=== PATIENT | female | born 1955 | race Caucasian/White ===

== ENCOUNTER → 2018-03-02 | Outpatient (CLI) | payer BC ==
[~2018-03-02] MED LIST: METHACHOLINE KIT (J7674) INH
== END ==
LOC: M CARPUL 06:42
DX: R05 Cough (principal)
CPT/HCPCS: J7674

== ENCOUNTER → 2018-03-21 | Outpatient (CLI) | payer BC | LOC: M WHC 06:48 | DX: Z12.31 Encounter for screening mammogram for malignant neoplasm of breast (principal); N60.31 Fibrosclerosis of right breast; N60.32 Fibrosclerosis of left breast | CPT/HCPCS: 77067 ==

== ENCOUNTER → 2018-08-07 | Outpatient (REF) | payer BC ==
[~2018-08-07] MED LIST changes: +ASPI81TA63; +CALC12502; +COLA100C2; +FLEXERIL; +FOLI1TAB; +IMURAN; +LISI10TA4; -METHACHOLINE KIT (J7674) INH; +OMEGA 3 FATTY ACIDS; +PERC5TAB8; +PRED10TA2; +SYNT75TA; +THERGRAN; +VICOTAB; +VIT D; +ZOCO40TA; +[UNRECOGNIZED DRUG - OTHER]
[2018-08-07 12:13] LABS: ALBUMIN 3.8 GM/DL (3.2-5.2); ALT/SGPT 29 U/L (12-78); BILIRUBIN,TOTAL 0.5 MG/DL (0.2-1.0); BLOOD UREA NITROGEN 15 MG/DL (7-18); CALCIUM LEVEL 9.6 MG/DL (8.8-10.2); CARBON DIOXIDE LEVEL 29 MEQ/L (21-32); CHLORIDE LEVEL 106 MEQ/L (98-107); CHOLESTEROL LEVEL 185 MG/DL (<200); CREATININE FOR GFR 0.88 MG/DL (0.55-1.30); GLOMERULAR FILTRATION RATE > 60.0 (>45); GLUCOSE, FASTING 85 MG/DL (70-100); HDL CHOLESTEROL 53 MG/DL (>40); LDL CHOLESTEROL 84 MG/DL (<100); NON-HDL-C 132 MG/DL; POTASSIUM SERUM 4.5 MEQ/L (3.5-5.1); SODIUM LEVEL 141 MEQ/L (136-145); THYROID STIMULATING HORMONE 0.516 uIU/ML (0.358-3.740); TOTAL PROTEIN 7.2 GM/DL (6.4-8.2); TRIGLYCERIDES LEVEL 239 MG/DL (<150)
== END ==
LOC: M SFHCPLAZ 08:46
PROVIDERS: ATTEND Nurse Practitioner Adult Health
DX: E78.2 Mixed hyperlipidemia (principal); E03.9 Hypothyroidism, unspecified

== ENCOUNTER → 2019-02-01 | Outpatient (CLI) | payer BC ==
--- NOTE | 2019-02-01 19:44 | REP ---
Lumbar spine series: Six views: History: Low back pain. Comparison study: January 04, 2014. Findings: There is anterior wedge compression fracture deformity at the superior endplate of L4. There is approximate 25% loss of anterior vertebral body heights. This is a new finding compared with the January 04, 2014 prior radiographs. This could be a recent compression fracture deformity. No bony destructive lesion is seen. Lumbar vertebral body heights are otherwise preserved. There is mild disc space narrowing L4-5 and L5-S1. Vacuum phenomenon is present at L5-S1. Vascular calcifications seen in normal caliber aorta. Pedicles and posterior elements appear intact. Sacrum and SI joints are intact. Tubal ligation clamps are noted in the pelvis bilaterally. Impression: Interval partial wedge compression fracture deformity has developed at L4 with 25% loss of vertebral body heights. Age indeterminate. New from 2013. Electronically Signed by Ant Mays MD 02/02/2019 07:45 A
== END ==
LOC: M LRY 16:22
PROVIDERS: ATTEND Nurse Practitioner Adult Health
DX: S32.040A Wedge compression fracture of fourth lumbar vertebra, initial encounter for closed fracture (principal); X58.XXXA Exposure to other specified factors, initial encounter; Y92.89 Other specified places as the place of occurrence of the external cause

== ENCOUNTER → 2019-05-04 | Outpatient (REF) | payer BC ==
[2019-05-08 14:20] LABS: HPV HYBRID CAPTURE II Negative (Negative)
== END ==
LOC: M SFHCWAGY 13:54
PROVIDERS: ATTEND Nurse Practitioner Women's Health
DX: Z12.4 Encounter for screening for malignant neoplasm of cervix (principal)
CPT/HCPCS: 87624; G0123

== ENCOUNTER → 2019-05-04 | Outpatient (CLI) | payer BC ==
--- NOTE | 2019-05-04 17:42 | REPMRS ---
Patient History The patient states she had a clinical breast exam in 04/2019. Family history of colorectal cancer at age 85 in father. Took hormonal contraceptives for 10 years. Digital Woman Screen Mammo: May 04, 2019 - Exam #: [id number] Bilateral CC and MLO view(s) were taken. Technologist: Susy Limon Technologist Prior study comparison: March 21, 2018, bilateral digital woman screen mammo performed at [facility]. July 16, 2016, digital woman screen mammo performed at [facility]. May 26, 2015, digital woman screen mammo performed at [facility]. FINDINGS: The breast tissue is heterogeneously dense. This may lower the sensitivity of mammography. There is a moderate amount of heterogeneously dense fibroglandular tissue which is fairly symmetric. There is no interval development of dominant mass, architectural distortion, or grouped microcalcification typical of malignancy. There has been no change in the appearance of the mammogram from the prior studies. 3-D tomosynthesis shows no additional findings. Assessment: BI-RADS/ACR category 1 mammogram. Negative Mammogram. Recommendation Routine screening mammogram of both breasts in 1 year (for women over age 40). This patient's Lifetime Breast Cancer RIsk is estimated at 5.7 %. This mammogram was interpreted with the aid of an FDA-approved computer-aided dectection system. Electronically Signed By: Toni Mays MD 05/04/19 [id number]
== END ==
LOC: M WHC 13:48
PROVIDERS: ATTEND Nurse Practitioner Women's Health
DX: Z12.31 Encounter for screening mammogram for malignant neoplasm of breast (principal); Z80.0 Family history of malignant neoplasm of digestive organs

== ENCOUNTER → 2020-09-08 | Outpatient (CLI) | payer BC ==
--- NOTE | 2020-09-08 11:31 | REPMRS ---
Patient History The patient states she has not had a clinical breast exam in over a year. Family history of colorectal cancer at age 85 in father. Took hormonal contraceptives for 10 years. Digital Woman Screen Mammo: September 08, 2020 - Exam #: [id number] Bilateral CC and MLO view(s) were taken. Technologist: Daly Reagan, Technologist Prior study comparison: May 04, 2019, bilateral digital woman screen mammo performed at [facility]. March 21, 2018, bilateral digital woman screen mammo performed at [facility]. July 16, 2016, digital woman screen mammo performed at [facility]. FINDINGS: There are scattered fibroglandular densities. The Volpara volumetric breast density category is:B. There has been no change in the appearance of the mammogram from the prior studies. There is a mild amount of scattered fibroglandular density which is fairly symmetric. There is no interval development of dominant mass, architectural distortion, or grouped microcalcification suggestive of malignancy. 3-D tomosynthesis shows no additional findings. Assessment: BI-RADS/ACR category 1 mammogram. Negative Mammogram. Recommendation Routine screening mammogram of both breasts in 1 year (for women over age 40). This patient's [facility] Lifetime Breast Cancer Risk is estimated at 5.5 %. This mammogram was interpreted with the aid of an FDA-approved computer-aided dectection system. Electronically Signed By: Toni Mays MD 09/08/20 1610
== END ==
LOC: M WHC 09:30
PROVIDERS: ATTEND Nurse Practitioner Adult Health
DX: Z12.31 Encounter for screening mammogram for malignant neoplasm of breast (principal)

== ENCOUNTER → 2021-07-27 | Outpatient (CLI) | payer BC | LOC: M LABSMTC 11:28 | PROVIDERS: ATTEND Pediatrics | DX: Z11.52 Encounter for screening for COVID-19 (principal) | CPT/HCPCS: C9803; U0003 ==

== ENCOUNTER → 2021-11-03 | Outpatient (CLI) | payer BC | LOC: M WHC 11:47 | PROVIDERS: ATTEND Nurse Practitioner Adult Health | DX: Z12.31 Encounter for screening mammogram for malignant neoplasm of breast (principal); R92.2 Inconclusive mammogram ==

== ENCOUNTER → 2021-12-07 | Outpatient (CLI) | payer OTHER ==
[2021-12-07 12:12] LABS: APPEARANCE, URINE HAZY (CLEAR); BACTERIA, URINE AUTO NEGATIVE (NEGATIVE); BILIRUBIN, URINE AUTO NEGATIVE (NEGATIVE); BLOOD, URINE BLOOD NEGATIVE (NEGATIVE); COLOR, URINE YELLOW (YELLOW); EOS # 0.1 10^3/uL (0.0-0.5); EOS % 3.1 % (0.0-3.0); GLUCOSE, URINE (UA) AUTO NEGATIVE (NEGATIVE); HEMATOCRIT 38.6 % (36.0-47.0); HEMOGLOBIN 12.9 g/dl (12.0-15.5); KETONE, URINE AUTO NEGATIVE (NEGATIVE); LEUKOCYTE ESTERASE, URINE AUTO 1+ (NEGATIVE); LYMPH # 0.9 10^3/uL (1.5-5.0); LYMPH % 21.7 % (24.0-44.0); MEAN CORPUSCULAR HEMOGLOBIN 35.4 pg (27.0-33.0); MEAN CORPUSCULAR HGB CONC 33.4 g/dl (32.0-36.5); MONO # 0.5 10^3/uL (0.0-0.8); MONO % 12.8 % (2.0-8.0); MUCUS, URINE SMALL (NEGATIVE); NEUTROPHILS # 2.4 10^3/uL (1.5-8.5); NEUTROPHILS % 61.1 % (36.0-66.0); NITRITE, URINE AUTO NEGATIVE (NEGATIVE); PLATELET COUNT, AUTOMATED 198 10^3/uL (150-450); PROTEIN, URINE AUTO 2+ mg/dL (NEGATIVE); RBC, URINE AUTO 1 /HPF (0-3); RED BLOOD COUNT 3.64 10^6/uL (4.00-5.40); SPECIFIC GRAVITY URINE AUTO 1.006 (1.002-1.035); SQUAMOUS EPITHELIAL CELL UR AU 6 /HPF (0-6); UROBILINOGEN, URINE AUTO 0.2 mg/dL (0.0-2.0); WBC, URINE AUTO 7 /HPF (0-3); WHITE BLOOD COUNT 3.9 10^3/uL (4.0-10.0)
[2021-12-07 12:41] LABS: ALBUMIN 3.8 GM/DL (3.2-5.2); BILIRUBIN,TOTAL 0.8 MG/DL (0.2-1.0); CALCIUM LEVEL 9.4 MG/DL (8.8-10.2); CREATININE FOR GFR 1.03 MG/DL (0.55-1.30); GLOMERULAR FILTRATION RATE 57.4 (>45); POTASSIUM SERUM 4.3 MEQ/L (3.5-5.1); TOTAL PROTEIN 8.6 GM/DL (6.4-8.2)
== END ==
LOC: M WUC 10:55
PROVIDERS: ATTEND Nurse Practitioner Family
DX: M75.51 Bursitis of right shoulder (principal)

== ENCOUNTER → 2022-09-08 | Outpatient (CLI) | payer BC, OTHER ==
[2022-09-08 14:02] LABS: ALBUMIN 3.8 G/DL (3.2-5.2); BILIRUBIN,TOTAL 1.1 MG/DL (0.3-1.2); CALCIUM LEVEL 10.5 MG/DL (8.3-10.6); CHOLESTEROL RISK RATIO 2.95 (<5); CREATININE FOR GFR 1.05 MG/DL (0.55-1.30); HDL CHOLESTEROL 54.1 MG/DL (>40); POTASSIUM SERUM 4.7 MMOL/L (3.5-5.1); THYROID STIMULATING HORMONE 0.615 uIU/ML (0.55-4.78)
[2022-09-08 18:41] LABS: LDL CHOLESTEROL 78.5 MG/DL (<100); TOTAL PROTEIN 7.9 G/DL (5.7-8.2)
== END ==
LOC: M PLALAB 08:23
PROVIDERS: ATTEND Nurse Practitioner Adult Health
DX: Z00.00 Encounter for general adult medical examination without abnormal findings (principal); I10 Essential (primary) hypertension; E78.2 Mixed hyperlipidemia

== ENCOUNTER 2022-10-24 17:37 | Inpatient (IN) | payer BC ==
[~2022-10-24] VITALS: Ht 170.2 cm; Wt 93.1 kg
[2022-10-24] MEDS ORDERED: ACETAMINOPHEN 325 MG TAB PO ONE (18:00)
[2022-10-24] MEDS ORDERED: NS 1,000 ML IV SCH (18:00)
[2022-10-24] MEDS ORDERED: LOSA100T45 PO (18:01)
[2022-10-24] MEDS ORDERED: URSO1TAB7 PO (18:01)
[2022-10-24] MEDS ORDERED: SYNT100T (18:01)
[2022-10-24] MEDS ORDERED: AZAT50TA37 PO (18:01)
[2022-10-24] MEDS ORDERED: TYLE650T38 PO (18:01)
[2022-10-24 18:11] LABS: VENOUS BASE EXCESS -1.6 (-2.0-2.0); VENOUS HCO3 23.5 MEQ/L (23.0-27.0); VENOUS O2 SATURATION 66.5 % (60.0-80.0); VENOUS PARTIAL PRESSURE CO2 40.9 mmHg (38.0-50.0); VENOUS PARTIAL PRESSURE O2 33.1 mmHg (30.0-50.0); VENOUS PH 7.377 UNITS (7.330-7.430); VENOUS STANDARD HCO3 22.5 MEQ/L; VENOUS TOTAL CO2 24.7 MEQ/L (24.0-28.0)
[2022-10-24 18:12] LABS: BASO % 0.2 % (0.0-1.0); EOS # 0.2 10^3/uL (0.0-0.5); EOS % 3.1 % (0.0-3.0); HEMATOCRIT 38.1 % (36.0-47.0); HEMOGLOBIN 12.7 g/dl (12.0-15.5); LYMPH # 0.1 10^3/uL (1.5-5.0); LYMPH % 2.4 % (24.0-44.0); MEAN CORPUSCULAR HEMOGLOBIN 36.2 pg (27.0-33.0); MEAN CORPUSCULAR HGB CONC 33.3 g/dl (32.0-36.5); MEAN CORPUSCULAR VOLUME 108.5 fl (80.0-96.0); MONO # 0.3 10^3/uL (0.0-0.8); MONO % 5.3 % (2.0-8.0); NEUTROPHILS # 4.5 10^3/uL (1.5-8.5); NEUTROPHILS % 88.8 % (36.0-66.0); PLATELET COUNT, AUTOMATED 146 10^3/uL (150-450); RED BLOOD COUNT 3.51 10^6/uL (4.00-5.40); WHITE BLOOD COUNT 5.1 10^3/uL (4.0-10.0)
[2022-10-24 18:20] LABS: ETHYL ALCOHOL (ETHANOL) < 0.003 % (0.000-0.010)
[2022-10-24] MEDS ORDERED: LIDOCAINE 2% 5ML JELLY UROJET TOP ONE (18:20)
[2022-10-24] MEDS ORDERED: NS 1,000 ML IV ONE (18:20)
[2022-10-24 18:21] LABS: AMYLASE 28 U/L (30-118); CPK CREATINE PHOSPHOKINASE 82 U/L (34-145)
[2022-10-24 18:22] LABS: ALBUMIN 3.2 G/DL (3.2-5.2); ALKALINE PHOSPHATASE 205 U/L (46-116); ALT/SGPT 44 U/L (7.0-40); AST/SGOT 68 U/L (<34); BILIRUBIN,DIRECT 0.6 MG/DL (<0.4); BLOOD UREA NITROGEN 13 MG/DL (9-23); CALCIUM LEVEL 8.7 MG/DL (8.3-10.6); CARBON DIOXIDE LEVEL 25 MMOL/L (20-31); CHLORIDE LEVEL 105 MMOL/L (98-107); CK-MB VALUE MASS < 1.0 NG/ML (<3.6); CREATININE FOR GFR 1.07 MG/DL (0.55-1.30); GLOMERULAR FILTRATION RATE 54.8 (>45); GLUCOSE, FASTING 110 MG/DL (74-106); MB/CK RELATIVE INDEX 1.21 (< OR =4); SODIUM LEVEL 135 MMOL/L (136-145); TOTAL PROTEIN 6.9 G/DL (5.7-8.2)
[2022-10-24 18:23] LABS: PROTHROMBIN TIME 13.4 SECONDS (12.5-14.5)
[2022-10-24 19:18] LABS: APPEARANCE, URINE CLEAR (CLEAR); BACTERIA, URINE AUTO NEGATIVE (NEGATIVE); BILIRUBIN, URINE AUTO NEGATIVE (NEGATIVE); BLOOD, URINE BLOOD NEGATIVE (NEGATIVE); COLOR, URINE YELLOW (YELLOW); GLUCOSE, URINE (UA) AUTO NEGATIVE (NEGATIVE); KETONE, URINE AUTO NEGATIVE (NEGATIVE); LEUKOCYTE ESTERASE, URINE AUTO NEGATIVE (NEGATIVE); NITRITE, URINE AUTO NEGATIVE (NEGATIVE); PROTEIN, URINE AUTO 1+ mg/dL (NEGATIVE); RBC, URINE AUTO 0 /HPF (0-3); SQUAMOUS EPITHELIAL CELL UR AU 0 /HPF (0-6); WBC, URINE AUTO 0 /HPF (0-3)
[2022-10-24 19:39] LABS: BARBITURATES URINE NEGATIVE (NEGATIVE); COCAINE METABOLITE URINE NEGATIVE (NEGATIVE); METHADONE URINE NEGATIVE (NEGATIVE); OPIATES URINE NEGATIVE (NEGATIVE)
[2022-10-24 19:40] LABS: AMPHETAMINES LEVEL URINE NEGATIVE (NEGATIVE); BENZODIAZEPINES URINE NEGATIVE (NEGATIVE); CANNABINOIDS URINE NEGATIVE (NEGATIVE); PHENCYCLIDINE URINE NEGATIVE (NEGATIVE)
[2022-10-24] MEDS ORDERED: IBUPROFEN 600MG TAB PO ONE (20:40)
[2022-10-24] MEDS ORDERED: VITA100093 PO (21:10)
[2022-10-24] MEDS ORDERED: OMEG100011 PO (21:10)
[2022-10-24] MEDS ORDERED: THERTAB19 PO (21:10)
[2022-10-24] MEDS ORDERED: PRAV80TA2 PO (21:10)
[2022-10-24] MEDS ORDERED: ASPI81TA26 PO (21:10)
[2022-10-24] MEDS ORDERED: FOLI1TAB11 PO (21:10)
[2022-10-24] MEDS ORDERED: ATOR40TA75 PO (21:21)
[2022-10-24] MEDS ORDERED: OMEP-173 PO (21:21)
[2022-10-24] MEDS ORDERED: METO1TAB87 PO (21:21)
[2022-10-24] MEDS ORDERED: AMLO1TAB24 PO (21:21)
[2022-10-24] MEDS ORDERED: HOME MED LIST COMPLETE! XX SCH (21:25)
[2022-10-24 22:05] VITALS: BP 132/73
[2022-10-24 22:45] LABS: HEMOGLOBIN A1c 4.8 % (4.0-6.0)
[2022-10-25] MEDS ORDERED: LR 1,000 ML IV SCH (01:05)
[2022-10-25] MEDS ORDERED: MAG SULF 1GM/100ML (MAG RUN) 1 GM in IV 1 EA IV ONE (02:00)
[2022-10-25 05:05] VITALS: BP 152/87
[2022-10-25] MEDS: LEVOTHYROXINE 100MCG TABLET (0.1MG) PO SCH (05:06)
[2022-10-25] MEDS: ACETAMINOPHEN TAB 650MG DOSE (2X325MG) PO PRN ×3 (05:06→23:37)
[2022-10-25 06:53] LABS: HEMATOCRIT 32.5 % (36.0-47.0); MEAN CORPUSCULAR HEMOGLOBIN 35.4 pg (27.0-33.0); MEAN CORPUSCULAR HGB CONC 32.9 g/dl (32.0-36.5); MEAN CORPUSCULAR VOLUME 107.6 fl (80.0-96.0); PLATELET COUNT, AUTOMATED 101 10^3/uL (150-450); RED BLOOD COUNT 3.02 10^6/uL (4.00-5.40); WHITE BLOOD COUNT 4.5 10^3/uL (4.0-10.0)
[2022-10-25 07:00] LABS: ALBUMIN 2.8 G/DL (3.2-5.2); ALKALINE PHOSPHATASE 181 U/L (46-116); ALT/SGPT 41 U/L (7.0-40); AST/SGOT 56 U/L (<34); BILIRUBIN,TOTAL 1.6 MG/DL (0.3-1.2); BLOOD UREA NITROGEN 11 MG/DL (9-23); CALCIUM LEVEL 8.7 MG/DL (8.3-10.6); CARBON DIOXIDE LEVEL 26 MMOL/L (20-31); CHLORIDE LEVEL 109 MMOL/L (98-107); CHOLESTEROL LEVEL 94 MG/DL (<200); CHOLESTEROL RISK RATIO 2.78 (<5); CREATININE FOR GFR 0.94 MG/DL (0.55-1.30); GLOMERULAR FILTRATION RATE > 60.0 (>45); GLUCOSE, FASTING 102 MG/DL (74-106); HDL CHOLESTEROL 33.7 MG/DL (>40); LDL CHOLESTEROL 46.9 MG/DL (<100); MAGNESIUM LEVEL 2.1 MG/DL (1.8-2.4); NON-HDL-C 60.3 MG/DL; SODIUM LEVEL 141 MMOL/L (136-145); TOTAL PROTEIN 6.2 G/DL (5.7-8.2); TRIGLYCERIDES LEVEL 67 MG/DL (<150)
[2022-10-25 07:04] LABS: THYROID STIMULATING HORMONE 0.656 uIU/ML (0.55-4.78)
[2022-10-25 07:12] LABS: HEMOGLOBIN 10.7 g/dl (12.0-15.5)
[2022-10-25] MEDS ORDERED: ISOVUE-370 76% 100ML VIAL As Ordered ONE (08:06)
[2022-10-25] MEDS ORDERED: azaTHIOprine 10MG/ML SUSP *COMPOUNDED* 40ML BOTTLE PO SCH (09:00)
[2022-10-25] MEDS: ENOXAPARIN 40MG/0.4ML SYRINGE (J1650 PER 10MG) SC SCH (09:00)
[2022-10-25 10:06] LABS: IRON (FE) 30 UG/DL (50-170); PERCENT SATURATION 12.7 % (13.2-45.0); TOTAL IRON BINDING CAPACITY 236 UG/DL (250-425)
[2022-10-25 10:08] LABS: FERRITIN 170.8 NG/ML (7.3-270.7); FOLATE > 24.0 NG/ML (>5.4)
[2022-10-25 10:09] LABS: VITAMIN B12 LEVEL 378 PG/ML (211-911)
[2022-10-25] MEDS: FOLIC ACID 1MG TAB PO SCH (10:52)
[2022-10-25] MEDS: VITAMIN D 1,000 INTERNATIONAL UNITS TABLET PO SCH (10:52)
[2022-10-25] MEDS: OMEPRAZOLE 20MG CAP PO SCH (10:52)
[2022-10-25] MEDS: amLODIPine 5 MG TAB PO SCH (10:54)
[2022-10-25] MEDS: METOPROLOL TART 25 MG TABLET PO SCH ×2 (10:54→20:21)
[2022-10-25] MEDS: LOSARTAN 50MG TABLET PO SCH (10:54)
[2022-10-25 14:43] LABS: HEPATITIS B SURFACE ANTIGEN NEGATIVE (NEGATIVE)
[2022-10-25 15:04] LABS: HEPATITIS B CORE ANTIBODY IGM NEGATIVE (NEGATIVE)
[2022-10-25 16:00] VITALS: BP 150/82
[2022-10-25] MEDS: OMEGA-3 1000MG CAPSULE PO SCH (20:20)
[2022-10-25 21:45] VITALS: BP 150/75
[2022-10-26] MEDS: LEVOTHYROXINE 100MCG TABLET (0.1MG) PO SCH (05:08)
[2022-10-26 05:14] VITALS: BP 142/77
[2022-10-26 06:05] LABS: BASO % 0.6 % (0.0-1.0); EOS # 0.2 10^3/uL (0.0-0.5); EOS % 6.4 % (0.0-3.0); HEMATOCRIT 30.3 % (36.0-47.0); HEMOGLOBIN 9.9 g/dl (12.0-15.5); LYMPH # 0.6 10^3/uL (1.5-5.0); LYMPH % 16.6 % (24.0-44.0); MEAN CORPUSCULAR HEMOGLOBIN 35.6 pg (27.0-33.0); MEAN CORPUSCULAR HGB CONC 32.7 g/dl (32.0-36.5); MONO # 0.4 10^3/uL (0.0-0.8); MONO % 10.5 % (2.0-8.0); NEUTROPHILS # 2.3 10^3/uL (1.5-8.5); NEUTROPHILS % 65.6 % (36.0-66.0); PLATELET COUNT, AUTOMATED 103 10^3/uL (150-450); RED BLOOD COUNT 2.78 10^6/uL (4.00-5.40); WHITE BLOOD COUNT 3.4 10^3/uL (4.0-10.0)
[2022-10-26 06:32] LABS: ERYTHROCYTE SEDIMENTATION RATE 56 mm/hr (0-30)
[2022-10-26 06:33] LABS: ALBUMIN 2.6 G/DL (3.2-5.2); ALKALINE PHOSPHATASE 214 U/L (46-116); ALT/SGPT 51 U/L (7.0-40); AST/SGOT 75 U/L (<34); BILIRUBIN,TOTAL 1.1 MG/DL (0.3-1.2); BLOOD UREA NITROGEN 12 MG/DL (9-23); CALCIUM LEVEL 8.8 MG/DL (8.3-10.6); CARBON DIOXIDE LEVEL 24 MMOL/L (20-31); CHLORIDE LEVEL 108 MMOL/L (98-107); CREATININE FOR GFR 0.93 MG/DL (0.55-1.30); GLOMERULAR FILTRATION RATE > 60.0 (>45); GLUCOSE, FASTING 93 MG/DL (74-106); MAGNESIUM LEVEL 1.9 MG/DL (1.8-2.4); POTASSIUM SERUM 4.1 MMOL/L (3.5-5.1); SODIUM LEVEL 139 MMOL/L (136-145)
[2022-10-26] MEDS: VITAMIN D 1,000 INTERNATIONAL UNITS TABLET PO SCH (08:59)
[2022-10-26] MEDS: LOSARTAN 50MG TABLET PO SCH (08:59)
[2022-10-26] MEDS: FOLIC ACID 1MG TAB PO SCH (09:00)
[2022-10-26] MEDS: amLODIPine 5 MG TAB PO SCH (09:00)
[2022-10-26] MEDS: OMEPRAZOLE 20MG CAP PO SCH (09:00)
[2022-10-26] MEDS: ENOXAPARIN 40MG/0.4ML SYRINGE (J1650 PER 10MG) SC SCH (09:00)
[2022-10-26] MEDS: METOPROLOL TART 25 MG TABLET PO SCH ×2 (09:00→21:18)
[2022-10-26 14:00] VITALS: BP 143/77
[2022-10-26 15:11] LABS: CYTOMEGALOVIRUS IgG ANTIBODY <0.60 U/mL (0.00-0.59); CYTOMEGALOVIRUS IgM ANTIBODY <30.0 AU/mL (0.0-29.9); EBV VIRAL CAPSID AG IgG 80.4 U/mL (0.0-17.9); EBV VIRAL CAPSID AG IgM <36.0 U/mL (0.0-35.9)
[2022-10-26 15:41] LABS: HIV 1&2 SCREEN ATELLICA NEGATIVE (NEGATIVE)
[2022-10-26] MEDS ORDERED: NAPROXEN 250 MG TAB PO PRN (16:20)
[2022-10-26] MEDS: OMEGA-3 1000MG CAPSULE PO SCH (21:17)
[2022-10-26 21:19] VITALS: BP 142/77
[2022-10-27] MEDS: LEVOTHYROXINE 100MCG TABLET (0.1MG) PO SCH (05:19)
[2022-10-27 06:00] VITALS: BP 146/73
[2022-10-27 06:23] LABS: BASO % 0.9 % (0.0-1.0); EOS # 0.3 10^3/uL (0.0-0.5); EOS % 9.1 % (0.0-3.0); HEMATOCRIT 30.3 % (36.0-47.0); LYMPH # 0.8 10^3/uL (1.5-5.0); LYMPH % 25.5 % (24.0-44.0); MEAN CORPUSCULAR HEMOGLOBIN 35.3 pg (27.0-33.0); MEAN CORPUSCULAR VOLUME 107.1 fl (80.0-96.0); MONO # 0.3 10^3/uL (0.0-0.8); MONO % 9.7 % (2.0-8.0); NEUTROPHILS # 1.8 10^3/uL (1.5-8.5); NEUTROPHILS % 54.5 % (36.0-66.0); PLATELET COUNT, AUTOMATED 128 10^3/uL (150-450); RED BLOOD COUNT 2.83 10^6/uL (4.00-5.40); WHITE BLOOD COUNT 3.3 10^3/uL (4.0-10.0)
[2022-10-27 06:36] LABS: ALBUMIN 2.8 G/DL (3.2-5.2); ALKALINE PHOSPHATASE 270 U/L (46-116); ALT/SGPT 50 U/L (7.0-40); AST/SGOT 61 U/L (<34); BILIRUBIN,TOTAL 0.8 MG/DL (0.3-1.2); BLOOD UREA NITROGEN 13 MG/DL (9-23); CARBON DIOXIDE LEVEL 27 MMOL/L (20-31); CHLORIDE LEVEL 107 MMOL/L (98-107); CREATININE FOR GFR 0.92 MG/DL (0.55-1.30); GLOMERULAR FILTRATION RATE > 60.0 (>45); GLUCOSE, FASTING 84 MG/DL (74-106); MAGNESIUM LEVEL 1.7 MG/DL (1.8-2.4); POTASSIUM SERUM 4.2 MMOL/L (3.5-5.1); SODIUM LEVEL 139 MMOL/L (136-145); TOTAL PROTEIN 6.3 G/DL (5.7-8.2)
[2022-10-27 06:51] LABS: ERYTHROCYTE SEDIMENTATION RATE 70 mm/hr (0-30)
[2022-10-27] MEDS ORDERED: MAGNESIUM OXIDE 400MG TAB (MAG-OX) PO ONE (07:35)
[2022-10-27] MEDS: ENOXAPARIN 40MG/0.4ML SYRINGE (J1650 PER 10MG) SC SCH (09:21)
[2022-10-27] MEDS: VITAMIN D 1,000 INTERNATIONAL UNITS TABLET PO SCH (09:22)
[2022-10-27] MEDS: LOSARTAN 50MG TABLET PO SCH (09:23)
[2022-10-27] MEDS: amLODIPine 5 MG TAB PO SCH (09:24)
[2022-10-27] MEDS: METOPROLOL TART 25 MG TABLET PO SCH ×2 (09:25→20:24)
[2022-10-27] MEDS: FOLIC ACID 1MG TAB PO SCH (09:25)
[2022-10-27] MEDS: OMEPRAZOLE 20MG CAP PO SCH (09:25)
[2022-10-27 15:09] LABS: ANTI PARVO VIRUS LEVEL IGG 7.8 index (0.0-0.8); ANTI PARVO VIRUS LEVEL IgM 0.3 index (0.0-0.8)
[2022-10-27 20:00] VITALS: BP 122/75
[2022-10-27] MEDS: OMEGA-3 1000MG CAPSULE PO SCH (20:25)
[2022-10-28] MEDS: LEVOTHYROXINE 100MCG TABLET (0.1MG) PO SCH (05:04)
[2022-10-28 06:00] VITALS: BP 144/75
[2022-10-28 06:08] LABS: BASO % 0.6 % (0.0-1.0); EOS # 0.2 10^3/uL (0.0-0.5); EOS % 7.6 % (0.0-3.0); HEMATOCRIT 29.9 % (36.0-47.0); LYMPH # 0.9 10^3/uL (1.5-5.0); LYMPH % 27.4 % (24.0-44.0); MEAN CORPUSCULAR HEMOGLOBIN 35.8 pg (27.0-33.0); MEAN CORPUSCULAR HGB CONC 33.4 g/dl (32.0-36.5); MEAN CORPUSCULAR VOLUME 107.2 fl (80.0-96.0); MONO # 0.4 10^3/uL (0.0-0.8); NEUTROPHILS # 1.7 10^3/uL (1.5-8.5); NEUTROPHILS % 52.1 % (36.0-66.0); PLATELET COUNT, AUTOMATED 143 10^3/uL (150-450); RED BLOOD COUNT 2.79 10^6/uL (4.00-5.40); WHITE BLOOD COUNT 3.2 10^3/uL (4.0-10.0)
[2022-10-28 06:36] LABS: ALBUMIN 2.9 G/DL (3.2-5.2); ALKALINE PHOSPHATASE 320 U/L (46-116); ALT/SGPT 49 U/L (7.0-40); AST/SGOT 57 U/L (<34); BILIRUBIN,TOTAL 0.8 MG/DL (0.3-1.2); BLOOD UREA NITROGEN 11 MG/DL (9-23); CALCIUM LEVEL 9.2 MG/DL (8.3-10.6); CARBON DIOXIDE LEVEL 28 MMOL/L (20-31); CHLORIDE LEVEL 106 MMOL/L (98-107); CREATININE FOR GFR 0.87 MG/DL (0.55-1.30); GLOMERULAR FILTRATION RATE > 60.0 (>45); GLUCOSE, FASTING 84 MG/DL (74-106); MAGNESIUM LEVEL 1.9 MG/DL (1.8-2.4); POTASSIUM SERUM 4.3 MMOL/L (3.5-5.1); SODIUM LEVEL 138 MMOL/L (136-145); TOTAL PROTEIN 6.4 G/DL (5.7-8.2)
[2022-10-28 07:35] VITALS: BP 143/74
[2022-10-28] MEDS: METOPROLOL TART 25 MG TABLET PO SCH (07:43)
[2022-10-28] MEDS: ENOXAPARIN 40MG/0.4ML SYRINGE (J1650 PER 10MG) SC SCH (09:00)
[2022-10-28] MEDS: FOLIC ACID 1MG TAB PO SCH (10:36)
[2022-10-28] MEDS: LOSARTAN 50MG TABLET PO SCH (10:37)
[2022-10-28] MEDS: OMEPRAZOLE 20MG CAP PO SCH (10:37)
[2022-10-28] MEDS: VITAMIN D 1,000 INTERNATIONAL UNITS TABLET PO SCH (10:37)
[2022-10-28 10:38] VITALS: BP 142/75
[2022-10-28] MEDS: amLODIPine 5 MG TAB PO SCH (10:38)
[2022-10-30 07:07] LABS: CMV QUANT DNA PCR (PLASMA) Negative (Negative); HEPATITIS A IgG TOTAL Positive (Negative); HEPATITIS C QUANTITATION HCV Not Detected IU/mL (.); PARVOVIRUS B19 QUANT PCR Negative copies/mL (Negative)
== END 2022-10-28 12:47 | disposition home or self-care (01) | DRG 723 ==
LOC: EDBD 17:37 → M ED 17:37 → M ED INP 20:53 → ENRESERV 21:35 → M MSPAV 21:54
PROVIDERS: ADMIT Internal Medicine; ATTEND Internal Medicine
DX: B34.9 Viral infection, unspecified (principal); D61.811 Other drug-induced pancytopenia; D69.6 Thrombocytopenia, unspecified; E83.42 Hypomagnesemia; R16.0 Hepatomegaly, not elsewhere classified; K75.4 Autoimmune hepatitis; K76.0 Fatty (change of) liver, not elsewhere classified; I10 Essential (primary) hypertension; E78.5 Hyperlipidemia, unspecified; R74.01 Elevation of levels of liver transaminase levels; M19.90 Unspecified osteoarthritis, unspecified site; E03.9 Hypothyroidism, unspecified; D53.9 Nutritional anemia, unspecified; E87.6 Hypokalemia; K21.9 Gastro-esophageal reflux disease without esophagitis; S32.040S Wedge compression fracture of fourth lumbar vertebra, sequela; R53.1 Weakness; Z79.82 Long term (current) use of aspirin; Z79.890 Hormone replacement therapy; Z79.899 Other long term (current) drug therapy; Z88.2 Allergy status to sulfonamides

== ENCOUNTER → 2022-11-04 | Outpatient (REF) | payer BC ==
[~2022-11-04] MED LIST changes: +AMLO1TAB24 PO; +ASPI81TA26 PO; +ATOR40TA75 PO; +AZAT50TA37 PO; +FOLI1TAB11 PO; +LOSA100T45 PO; +METO1TAB87 PO; +OMEG100011 PO; +OMEP-173 PO; +PRAV80TA2 PO; +SYNT100T; +THERTAB19 PO; +TYLE650T38 PO; +URSO1TAB7 PO; +VITA100093 PO
[2022-11-04 17:28] LABS: BASO # 0.1 10^3/uL (0.0-0.2); BASO % 1.1 % (0.0-1.0); EOS # 0.2 10^3/uL (0.0-0.5); EOS % 4.9 % (0.0-3.0); HEMATOCRIT 35.5 % (36.0-47.0); HEMOGLOBIN 11.6 g/dl (12.0-15.5); LYMPH # 1.3 10^3/uL (1.5-5.0); LYMPH % 26.9 % (24.0-44.0); MEAN CORPUSCULAR HEMOGLOBIN 35.6 pg (27.0-33.0); MEAN CORPUSCULAR HGB CONC 32.7 g/dl (32.0-36.5); MEAN CORPUSCULAR VOLUME 108.9 fl (80.0-96.0); MONO # 0.7 10^3/uL (0.0-0.8); MONO % 14.8 % (2.0-8.0); NEUTROPHILS # 2.5 10^3/uL (1.5-8.5); NEUTROPHILS % 52.1 % (36.0-66.0); PLATELET COUNT, AUTOMATED 267 10^3/uL (150-450); RED BLOOD COUNT 3.26 10^6/uL (4.00-5.40); WHITE BLOOD COUNT 4.7 10^3/uL (4.0-10.0)
[2022-11-04 17:44] LABS: ALBUMIN 3.5 G/DL (3.2-5.2); ALKALINE PHOSPHATASE 219 U/L (46-116); ALT/SGPT 51 U/L (7.0-40); AST/SGOT 48 U/L (<34); BILIRUBIN,TOTAL 0.5 MG/DL (0.3-1.2); BLOOD UREA NITROGEN 15 MG/DL (9-23); CALCIUM LEVEL 9.8 MG/DL (8.3-10.6); CARBON DIOXIDE LEVEL 30 MMOL/L (20-31); CHLORIDE LEVEL 105 MMOL/L (98-107); CREATININE FOR GFR 0.97 MG/DL (0.55-1.30); GLOMERULAR FILTRATION RATE > 60.0 (>45); GLUCOSE, FASTING 99 MG/DL (74-106); POTASSIUM SERUM 4.8 MMOL/L (3.5-5.1); SODIUM LEVEL 139 MMOL/L (136-145); TOTAL PROTEIN 7.5 G/DL (5.7-8.2)
== END ==
LOC: M PLALAB 16:46
PROVIDERS: ATTEND Nurse Practitioner Adult Health
DX: K75.4 Autoimmune hepatitis (principal)

== ENCOUNTER → 2022-11-15 | Outpatient (CLI) | payer BC | LOC: M WHC 07:31 | PROVIDERS: ATTEND Nurse Practitioner Adult Health | DX: Z12.31 Encounter for screening mammogram for malignant neoplasm of breast (principal) ==

== ENCOUNTER → 2023-09-27 | Outpatient (CLI) | payer MEDICARE, BC ==
[~2023-09-27] MED LIST changes: -LOSA100T45 PO; +LOSA100T46 PO
== END ==
LOC: M RAD 10:48
PROVIDERS: ATTEND Nurse Practitioner Family
DX: M25.462 Effusion, left knee (principal)

== ENCOUNTER → 2023-10-10 | Outpatient (CLI) | payer MEDICARE, BC ==
[2023-10-10 12:08] LABS: THYROID STIMULATING HORMONE 0.827 uIU/ML (0.55-4.78)
[2023-10-10 12:09] LABS: FREE T4 1.42 NG/DL (0.89-1.76)
== END ==
LOC: M PLALAB 08:22
PROVIDERS: ATTEND Nurse Practitioner Adult Health
DX: E03.9 Hypothyroidism, unspecified (principal)

== ENCOUNTER → 2023-11-25 | Outpatient (CLI) | payer MEDICARE, BC | LOC: M WHC 09:27 | PROVIDERS: ATTEND Nurse Practitioner Adult Health | DX: Z12.31 Encounter for screening mammogram for malignant neoplasm of breast (principal) ==

== ENCOUNTER → 2024-12-03 | Outpatient (CLI) | payer MEDICARE, BC | LOC: M WHC 08:43 | PROVIDERS: ATTEND Nurse Practitioner Adult Health | DX: Z12.31 Encounter for screening mammogram for malignant neoplasm of breast (principal); R92.333 Mammographic heterogeneous density, bilateral breasts ==

== ENCOUNTER → 2025-05-26 | Outpatient (CLI) | payer MEDICARE, BC ==
[~2025-05-26] MED LIST changes: -PRAV80TA2 PO; +PRAV80TA75 PO; -URSO1TAB7 PO; +URSO250T14 PO
== END ==
LOC: M RAD 13:00
PROVIDERS: ATTEND Registered Nurse
DX: J06.9 Acute upper respiratory infection, unspecified (principal)